=== PATIENT | male | born 1975 | race Caucasian/White ===

== ENCOUNTER → 2025-02-27 07:02 | Outpatient (REF) | payer OTHER, SELFPAY | LOC: HWRCS 07:02 | PROVIDERS: ATTENDING PHYSICIAN Internal Medicine | DX: I10 Essential (primary) hypertension (principal); E78.2 Mixed hyperlipidemia; E66.01 Morbid (severe) obesity due to excess calories | CPT/HCPCS: 93005; 93306 ==